=== PATIENT | female | born 1995 | race Caucasian/White ===

== ENCOUNTER 2025-02-12 08:15 | Outpatient (AMB) | payer OTHER, SELFPAY ==
--- NOTE | 2025-02-12 08:15 | AM.OFFWIN_ITS ---
Intake Vital Signs 02/12/25 08:21 Height 5 ft 2 in Weight 132 lb BMI 24.1 BP 112/80 Blood Pressure Location Lt brachial Position Sitting Pulse 78 Pulse Source Pulse Oximeter Temp 97.8 F Temp Source Oral Pulse Oximetry (%) 99 Oxygen Delivery Method Room Air Intake Visit Reasons: [employer] burning during urination Intake Note: Patient presents with c/o burning when urinating, urgency & frequency x3 days Allergies No Known Allergies Allergy (Verified 02/12/25 08:23) Medication List - Last Reconciled 02/12/25 by Gema cMkenzie NP cefuroxime axetil 500 mg PO BID 7 days Do you need a note to return to daycare/school/sports/work: No HPI HPI Comments History of Present Illness Details 30 y/o Female Patient who presents to hospital for special surgery walk in clinic with c/o Urinary Symptoms for 3 days. Reports Dysuria, frequency and Urgency. Denies Vaginal symptoms or Bowel symptoms. Denies Nausea, vomiting, fevers or chills. Denies Hematuria. Sexually active with 1 Male partner - trying to conceive. Pt asking for an Abx that is safe taken during . [facility] Medical History (Updated 02/12/25 @ 08:31 by Gema Mckenzie NP) Dysuria Review of Systems Const All systems reviewed & are unremarkable except as noted in HPI and below Physical Exam Vital Signs: Last Vital Signs Temp 97.8 F 02/12/25 08:21 Pulse 78 02/12/25 08:21 BP 112/80 02/12/25 08:21 Pulse Ox 99 02/12/25 08:21 Oxygen Delivery Method Room Air 02/12/25 08:21 BMI result Body Mass Index 24.1 Const General: no acute distress Nutritional Appearance: well nourished Orientation/consciousness: patient oriented x3 Resp Effort & Inspection: normal respiratory effort Cardio Rate: regular rate Other: Pelvic U/S deferred. General: Yes no CVA tenderness Back/Spine/Pelvis Back: no CVA tenderness Neuro General: patient oriented x3, gait normal and moves all extremities Psych Speech and movement: Normal speech and movement present Results AMB Urinalysis, Automated UA Leukoctes 15 Martin/uL Last Edit by Tereza Lugo CMA on 02/12/25 08:31 UA Nitrite Negative Last Edit by Tereza Lugo CMA on 02/12/25 08:31 UA Urobilinogen 0.2 mg/dL Last Edit by Tereza Lugo, [employer] on 02/12/25 08: 31 UA Protein 0 mg/dL Last Edit by Tereza Lugo, MARKING [employer]ER on 02/12/25 08:31 UA pH 6.0 Last Edit by Terzea Lugo, MARKING [employer]ER on 02/12/25 08:31 UA Blood 200 Bebeto/uL Last Edit by Tereza Lugo, MARKING ST[employer]ER on 02/12/25 08:31 UA Specific [place] 1.015 Last Edit by Tereza Luog, MARKING [employer]ER on 02/12/25 08 :31 UA Ketone Negative Last Edit by Tereza Lugo, MARKING ST[employer]ER on 02/12/25 08:31 UA Bilirubin 0 mg/dL Last Edit by Tereza Lugo, MARKING [employer]ER on 02/12/25 08:31 UA Glucose 0 mg/dL Last Edit by Tereza Lugo, MARKING [employer]ER on 02/12/25 08:31 Assessment & Plan Assessment & Plan (1) Dysuria: Code(s): R30.0 - Dysuria Plan: Urinalysis pos for MARTIN and Blood. Ordered Cefuroxime Sent urine for C&S Advised Pt that an increased risk of major defects or other adverse or maternal outcomes has generally not been observed following maternal use of cephalosporin antibiotics, including cefuroxime. Advised her to be safe; to have protected intercourse while on Abx. Orders: Orders AMB Urinalysis Automated Today Z13.9 - Encounter for screening, unspecified UA CC w/rflx Micro + Cult Today R30.0 - Dysuria Medications: New cefuroxime axetil 500 mg PO BID 14 tabs 0RF 7 days N30.90 - Cystitis, unspecified without hematuria Coding Level of Care Code Est Pt Level 4 (83517) Diagnoses Dysuria R30.0 Time Spent (min) 20
[2025-02-12 08:21] VITALS: BP 112/80; PULSE 78; TEMP 36.6; O2SAT 99; BMI 24.1
== END 2025-02-12 08:48 | disposition home or self-care (01) ==
PROVIDERS: Visit Provider Nurse Practitioner Family
DX: R30.0 Dysuria (principal); Z13.9 Encounter for screening, unspecified

== ENCOUNTER 2025-02-12 08:15 | Outpatient (REF) | payer OTHER, SELFPAY ==
--- OUTSIDE RECORDS SUMMARY | 2025-02-12 09:17 | XMS_ITS | Clinical Summary ---
Author Organization [facility] Address [address] [id number] Care Team Providers Care Student Activities Director Name Role Phone Unavailable Primary Care Provider Unavailabl e Allergies No known active allergies Medications Norgestimate-Eth Estradiol (SPRINTEC 28) 0.25-35 MG-MCG Tab 1 TABLET DAILY Active TRIMETHOPRIM-JESSICA YMYXIN B 30708-6.1 UNIT/ML-% Solution Use 1 gtt in each eye every 3 hours for 7 days 10 mL 10/24/2017 Active Social History Tobacco Use Types Packs/Day Years Used Date Smoking Tobacco: Never Smokeless Tobacco: Never Comments Unknown Sex and Gender Information Value Date Recorded Sex Assigned at Not on file Legal Sex Female 4:01 PM EDT Gender Identity Not on file Sexual Orientation Not on file Last Filed Vital Signs Vital Sign Reading Time Taken Comments Blood Pressure 138/86 10/24/2017 4:12 PM EDT Pulse 90 10/24/2017 4:12 PM EDT Temperature 36.8 C (98.3 F) 10/24/2017 4:12 PM EDT Respiratory Rate 16 10/24/2017 4:12 PM EDT Oxygen Saturation - - Inhaled Oxygen Concentration - - Weight - - Height - - Body Mass Index - - Plan of Treatment Health Maintenance Due Date Last Done Comments Hepatitis C Screening 1994 Pap Smear 2010 DTaP/Tdap/Td (1 - Tdap) 01/17/2012 Hep B (1 of 3 - 19+ 3-dose series) 2013 COVID-19 Vaccine ( - 2024-2 6 season) 2024 Influenza (#1) 2024 Zoster (Shingrix) (1 of 2) 01/17/2044 HPV Vaccine (No Doses Required) Completed Hep A Aged Out No longer eligi ble based on patient's age to complete this topic Hib Aged Out No longer eligi ble based on patient's age to complete this topic Meningococcal ACWY Aged Out No longer eligible based on patient's age to complete this topic Pneumococcal Aged Out No longer eligi ble based on patient's age to complete this topic Insurance [facility]
[2025-02-12 11:31] LABS: Appearance Urine Clear; Glucose Urine UA Negative (Negative); PH 5.5 (5.0-9.0); Specific Gravity - Urine 1.015 (1.005-1.025); UMIC TRIGGER UACC YES
[2025-02-12 11:40] LABS: UACC Culture Trigger YES
== END 2025-02-12 08:16 | disposition home or self-care (01) ==
LOC: HO.LAB 08:15
PROVIDERS: Visit Provider Nurse Practitioner Family
DX: R30.0 Dysuria (principal); Z13.89 Encounter for screening for other disorder
CPT/HCPCS: 81001; 81003; 87086